=== PATIENT | male | born 1960 | race Caucasian/White ===

== ENCOUNTER → 2018-08-05 10:23 | Outpatient (CLI) | payer OTHER, SELFPAY ==
--- NOTE | 2018-08-05 | DI.CT.S_ITS ---
PROCEDURE: CT ANGIO CHEST INDICATIONS: ASCENDING THORACIC ANUERYSMN TECHNIQUE: After the administration of intravenous contrast, 2.5 mm thick sections acquired from the lung apices to the posterior lung bases. Maximum intensity projection (MIP) oblique sagittal reformats were then acquired parallel to the aortic arch. For radiation dose reduction, the following was used: automated exposure control. COMPARISON: [facility], CT, PE STUDY (CTA CHEST), 08/29/2016, 10:18. FINDINGS: Image quality: Excellent. Aorta: The ascending thoracic aorta measures 1.2 cm in oblique axial diameter. The aorta measured 4.4 cm in diameter at the same level on the study dated 08/29/16. The thoracic aortic arch and the descending thoracic aorta demonstrate normal course and caliber. No aortic wall thickening or periaortic fat stranding. Visualized portions of the mesenteric arteries including the celiac axis, SMA, and renal arteries are widely patent. Mediastinum: No hematomas. Heart size is normal. No pericardial effusion. No mediastinal or hilar adenopathy by size criteria. Trace thymic tissue is redemonstrated unchanged from the prior study. Central pulmonary arteries are normal in size. Esophagus is normal in caliber. No hiatal hernia. Lungs and pleura: No acute airspace opacities. No pleural effusions or pneumothorax. Central and peripheral airways are patent and normal in caliber. Bones and chest wall: No axillary adenopathy by size criteria. Thyroid gland is unremarkable. No suspicious bony lesions. No vertebral body compression fractures. Abdomen: Visualized upper abdominal solid organs and bowel loops appear normal. IMPRESSION: 1. 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 Continued surveillance recommended. Dictated by: Leticia Prado M.D. on 08/05/2018 at 13:29 Approved by: Leticia Prado M.D. on 08/05/2018 at 13:41
[2018-08-05 10:58] LABS: Blood Urea Nitrogen 17 mg/dL (9-20); Estimated Glomerular Filt Rate > 60.0 mL/min (>60)
== END ==
PROVIDERS: PCP Family Medicine; Visit Provider Family Medicine
DX: I71.2 Thoracic aortic aneurysm, without rupture (principal)
CPT/HCPCS: 36415; 71275; 82565; 84520; Q9967

== ENCOUNTER → 2020-03-20 15:30 | Outpatient (CLI) | payer OTHER, SELFPAY ==
--- NOTE | 2020-03-20 15:35 | DI.ECHO.S_ITS ---
[facility] +---------+ : : [address] : : : : [id number] : : : : Phone: [phone] Echocardiogram Report + + :Name: ROQUE BARNETT Study Date: 03/20/2020 Height: 75 in : :[facility] Weight: 180 lb : : Gender: Male BSA: 2.1 m2 : :: 1960 Age: 59 yrs BP: 130/81 mmHg: :Reason For Study: THORACIC AORTIC ANEURYSM WITHOUT RUPTURE : :Ordering Physician: CRUZ, : :HARVINDER Performed By: Cathy Adkins : :Referring: HARVINDER ARROYO : + + Interpretation Summary Normal both left and right ventricle size and function. The ejection fraction is 60-65%. No valvular abnormality. Mildly enlarged ascending aorta (3.6cm). No pericardial effusion. Procedure: A two-dimensional transthoracic echocardiogram with color flow and Doppler was performed. The study quality was technically adequate. There is no prior echocardiogram noted for this patient. The patient was in sinus rhythm with heart rates between 57-70 bpm during the exam. Left Ventricle: The left ventricle is normal in size and wall thickness. The ejection fraction is estimated to be 60-65%. There are no focal wall motion abnormalities. Diastolic parameters suggest probable normal left ventricular diastolic function and normal filling pressures. Right Ventricle: The right ventricle is normal in size and function. Atria: Both atria are normal in size. There is no Doppler evidence for an interatrial shunt. Mitral Valve: The mitral valve is normal in structure and function. There is trace mitral regurgitation. Aortic Valve: The aortic valve is trileaflet. The aortic valve opens well. There is no aortic valve stenosis. There is trace aortic regurgitation. Tricuspid Valve: The tricuspid valve is normal in structure and function. There is mild tricuspid regurgitation. The right ventricular systolic pressure is estimated to be at least 21 mmHg based on an estimated right atrial pressure of 3 mm Hg. Pulmonic Valve: The pulmonic valve is normal in structure and function. There is no pulmonic valvular regurgitation. Great Vessels: The aortic root is normal size. The ascending aorta is mildly enlarged. The IVC is of normal diameter and collapses greater than 50% with a sniff. This suggests a low right atrial pressure of 3 mm Hg. Pericardium/ Pleura There is no pericardial effusion. There is no pleural effusion. MMode/2D Measurements & Calculations LVIDd: 3.8 cm LVOT diam: 2.0 cm LVIDs: 2.6 cm Ao root diam: 3.3 cm FS: 31.8 % asc Aorta Diam: 3.6 cm EPSS: 0.52 cm Ao Arch Diam (Prox Trans): 2.8 cm IVSd: 0.79 cm LVPWd: 0.80 cm LV brady. diameter/BSA (cm/m^2): 1.8 LV sys. diameter/BSA (cm/m^2): 1.3 LA A2 area: 18.9 cm2 RA long axis: 5.5 cm LA A4 area: 18.2 cm2 RA area: 15.9 cm2 LA length (vol): 5.4 cm RA vol: 39.4 ml LA vol: 54.2 ml RA : 18.8 ml/m2 LA vol index: 25.8 ml/m2 IVC diam: 1.1 cm RVD1 (basal): 3.6 cm TAPSE: 2.1 cm AARON (plan): 2.5 cm2 Doppler Measurements & Calculations Ao V2 max: 105.8 cm/sec LVOT Max [place]: 112.8 cm/sec Ao V2 mean: 73.6 cm/sec LV V1 max P.1 mmHg Ao max P.5 mmHg LV V1 VTI: 24.3 cm Ao mean P.4 mmHg AARON(I,D): 3.5 cm2 Ao V2 VTI: 21.0 cm AARON(V,D): 3.3 cm2 sev ratio: 1.2 AARON indexed to BSA (cm^2/m^2): 1.7 MV E max adair: 91.6 cm/sec TR max adair: 209.3 cm/sec MV A max adair: 79.4 cm/sec TR max P.6 mmHg MV E/A: 1.2 PA V2 max: 50.8 cm/sec Med Peak E' [place]air: 10.8 cm/sec PA V2 mean: 33.2 cm/sec E/E' med: 8.4 PA mean P.53 mmHg Lat Peak E' Adair: 11.8 cm/sec PA pr(Accel): 17.3 mmHg E/E' lat: 7.8 E/e' average: 8.1 MV dec time: 0.15 sec SV(LVOT): 74.6 ml Electronically signed by: Joseph Tirado on Reading Physician:03/20/2020 05:36 PM
== END ==
PROVIDERS: PCP Family Medicine; Referring Provider Nurse Practitioner; Visit Provider Nurse Practitioner
DX: I07.1 Rheumatic tricuspid insufficiency (principal); I77.89 Other specified disorders of arteries and arterioles; I71.2 Thoracic aortic aneurysm, without rupture
CPT/HCPCS: 93306

== ENCOUNTER 2021-02-26 15:19 | Emergency (ER) | payer OTHER, SELFPAY ==
[2021-02-26 15:21] VITALS: BP 130/70; PULSE 65; RESP 16; TEMP 36.4; O2SAT 100
[2021-02-26] MEDS: TET,DIPH,PERTUSS(ACELL),VAC/PF 0.5 ML SYRINGE IM (19:43)
--- NOTE | 2021-02-26 19:46 | DI.RAD.S_ITS ---
PROCEDURE: XR FOOT RT 2V INDICATIONS: puncture wound TECHNIQUE: 2 views of the foot were acquired. COMPARISON: None. FINDINGS: Bones: No fractures or dislocations. No suspicious bony lesions. Soft tissues: No tibiotalar joint effusion. Achilles tendon appears normal. No radiopaque soft tissue foreign bodies. IMPRESSION: Left foot without acute fracture or dislocation. No radiopaque soft tissue foreign bodies. Dictated by: Nicholas Devlin M.D. on 02/26/2021 at 20:49 Approved by: Nicholas Devlin M.D. on 02/26/2021 at 20:55
--- NOTE | 2021-02-26 20:32 | ED_ITS ---
HPI - Wound/Laceration <CHARO Stanley - Last Filed: 02/26/21 21:15> General Chief Complaint: Wound/Laceration Stated Complaint: left foot injury/wound 30 min Time Seen by Provider: 02/26/21 19:45 Source: patient Mode of arrival: Ambulatory History of Present Illness HPI narrative: Patient is a 60-year-old male who was pressure washing the inside of his boat when he slipped and punctured the volar aspect of his left foot approximately 6 hours ago. He is not on any anticoagulants. He was barefoot with clean feet and recently cleaned the surface that he injured his foot on. He is able to bear weight, bleeding was controlled, he does not complain of pain however he was concerned that he might need sutures. Patient also is requesting a tetanus vaccination. He cleaned his wound out immediately and allowed it to bleed and it stopped bleeding without intervention. Related Data Previous Rx's Medication Instructions Recorded cephalexin 500 mg capsule 500 mg PO QID #30 cap 02/26/21 Allergies Allergy/AdvReac Type Severity Reaction Status Date / Time No Known Allergies Allergy Uncoded 10/01/17 12:42 Review of Systems <CHARO Stanley - Last Filed: 02/26/21 21:15> Review of Systems Narrative: General: denies fever, chills Head/Neck: denies headache, neck pain Eyes: denies visual changes, eye pain Cardio: denies chest pain, palpitations Respiratory: denies shortness of breath, cough GI: denies abdominal pain, nausea, vomiting, or diarrhea : denies dysuria, hematuria MSK: denies joint pain, muscle weakness, small lac on sole of left foot Skin: denies rash, itching Neuro: denies numbness, tingling Exam <CHARO Stanley - Last Filed: 02/26/21 21:15> Narrative Exam Narrative: Independently reviewed vitals signs and nursing notes. General: Awake, alert, nontoxic, no cardiorespiratory distress Head/Neck: Atraumatic, neck full range of motion Eyes: EOMI, conjunctiva normal Nose: nares patent, no rhinorrhea Mouth/Throat: moist mucus membranes, posterior pharynx normal, no oral lesions Cardio: Regular rate and rhythm, no peripheral edema Respiratory: respirations unlabored without wheezing, stridor, or rales. No retractions. GI: Abdomen soft, nontender MSK: Moves all extremities, neurovascularly intact Skin: Normal capillary refill, no rash, left foot puncture wound is approximately 1 cm in length. It was copiously irrigated with normal saline, bleeding is controlled, wound edges are approximated. Neuro: Normal speech and cognition, normal gait Initial Vital Signs Initial Vital Signs: Vital Signs Temperature 97.6 F 02/26/21 15:21 Pulse Rate 65 02/26/21 15:21 Respiratory Rate 16 02/26/21 15:21 Blood Pressure 130/70 02/26/21 15:21 Pulse Oximetry 100 02/26/21 15:21 <Tawanna Casas DO - Last Filed: 03/03/21 03:35> Initial Vital Signs Initial Vital Signs: Vital Signs Temperature 97.6 F 02/26/21 15:21 Pulse Rate 65 02/26/21 15:21 Respiratory Rate 16 02/26/21 15:21 Blood Pressure 130/70 02/26/21 15:21 Pulse Oximetry 100 02/26/21 15:21 Procedures <CHARO Stanley - Last Filed: 02/26/21 21:15> Laceration Repair Laceration 1: Site: other (Left foot) Size (cm): 1 Description: linear and clean Depth: simple, single layer Pre-repair: irrigated extensively Skin layer closed with: steri-strips Size (cm): other Number of sutures: 0 Technique: other Course <CHARO Stanley - Last Filed: 02/26/21 21:15> Orders Ordered: Discontinued Medications Diphtheria/Tetanus/Acell Pertussis (Tet,Diph,Pertuss(Acell),Vac/Pf 0.5 Ml Syringe) 0.5 ml IM .ONCE ONE Stop: 02/26/21 19:23 Last Admin: 02/26/21 19:43 Dose: 0.5 ml Documented by: WERNER Lidocaine/Epinephrine (Lidocaine 1% W/Epi) 1 ml SUBCUT NOW ONE Stop: 02/26/21 19:48 Last Admin: 02/26/21 20:10 Dose: Not Given Documented by: VINCENT PROCEDURE:? XR FOOT RT 2V ? INDICATIONS:? puncture wound ? TECHNIQUE:? 2 views of the foot were acquired.? ? COMPARISON:? None. ? FINDINGS:? ? Bones:? No fractures or dislocations.? No suspicious bony lesions.? ? Soft tissues:? No tibiotalar joint effusion.? Achilles tendon appears normal.? No radiopaque soft tissue foreign bodies. ? ? IMPRESSION:? Left foot without acute fracture or dislocation. No radiopaque soft tissue foreign bodies. ? ? ? Dictated by: Nicholas Devlin M.D. on 02/26/2021 at 20:49 ? ? Approved by: Nicholas Devlin M.D. on 02/26/2021 at 20:55 ? Vital Signs Vital signs: Vital Signs - 8 hr 02/26/21 15:21 Temperature 97.6 F Pulse Rate 65 Respiratory Rate 16 Blood Pressure 130/70 Pulse Oximetry 100 <Tawanna Casas DO - Last Filed: 03/03/21 03:35> Orders Ordered: Discontinued Medications Diphtheria/Tetanus/Acell Pertussis (Tet,Diph,Pertuss(Acell),Vac/Pf 0.5 Ml Syringe) 0.5 ml IM .ONCE ONE Stop: 02/26/21 19:23 Last Admin: 02/26/21 19:43 Dose: 0.5 ml Documented by: WERNER Lidocaine/Epinephrine (Lidocaine 1% W/Epi) 1 ml SUBCUT NOW ONE Stop: 02/26/21 19:48 Last Admin: 02/26/21 20:10 Dose: Not Given Documented by: VINCENT Vital Signs Vital signs: Vital Signs - 8 hr 02/26/21 15:21 Temperature 97.6 F Pulse Rate 65 Respiratory Rate 16 Blood Pressure 130/70 Pulse Oximetry 100 MDM - Wound/Laceration <Kerri Gonzalez [facility] - Last Filed: 02/26/21 21:15> Imaging Data Extremity x-ray #1: Radiologist's Impression: PROCEDURE:? XR FOOT RT 2V ? INDICATIONS:? puncture wound ? TECHNIQUE:? 2 views of the foot were acquired.? ? COMPARISON:? None. ? FINDINGS:? ? Bones:? No fractures or dislocations.? No suspicious bony lesions.? ? Soft tissues:? No tibiotalar joint effusion.? Achilles tendon appears normal.? No radiopaque soft tissue foreign bodies. ? ? IMPRESSION:? Left foot without acute fracture or dislocation. No radiopaque soft tissue foreign bodies. ? ? ? Dictated by: Nicholas Devlin M.D. on 02/26/2021 at 20:49 ? ? Approved by: Nicholas Devlin M.D. on 02/26/2021 at 20:55 ? MDM Narrative Medical decision making narrative: Patient is a 60-year-old male who was pressure washing the inside of his boat when he slipped and punctured the volar aspect of his left foot approximately 6 hours ago. Patient is on anticoagulants, and is not immunocompromised. The patient was barefoot and injured his foot on a clean surface with immediate wound care after injury. Wound edges approximated after copious irrigation with 1 Steri-Strip. No concerns for pseudomonal contamination in his wound. If not improving in 1-2 days, or if any signs of infection patient understands he will see his primary care physician for this, this week. Vital signs were within normal limits. Left foot x-ray without acute fracture or dislocation no radiopaque soft tissue foreign bodies per radiology read. Patient was prescribed a 7 day course of Keflex with strict ER precautions. Patient is appropriate and amenable to discharge home. Vital signs are stable on repeat examination is unremarkable. Patient has been informed of results. Patient has been given strict return to ER precautions for any new or worsening symptoms. Patient understands to follow up closely with outpatient providers as instructed. Patient understands plan and agrees to discharge home. All questions and concerns answered at this time. Discharge Plan Departure Patient Disposition: Home Clinical Impression: Puncture wound of foot Qualifiers: Encounter type: initial encounter Laterality: left Qualified Code(s): S91.332A - Puncture wound without foreign body, left foot, initial encounter Instructions: DI for Puncture Wound Activity Restrictions/Additional Instructions: *You have been diagnosed with a puncture wound left foot. There is no fracture or debris visible on your x-ray. 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 Apply bacitracin ointment if desired. *What to do: *Please continue to take your regular medications as directed. [x ] New medication prescriptions sent to your pharmacy: [ cephalexin] [facility] in [place] [ ] New medication written as a paper prescription [ ] No new medications given *Please follow up with your primary care provider in 2-3 days if not improving, call for an appointment. Let them know you were seen in the Emergency Department and that we ask that you be seen in follow up. We will electronically transmit a record of today's note if your PCP is in our system *If you do not have a primary care provider please contact the [facility] Resource line at [phone]. They will ask some questions about your medical history and help get you set up with a doctor in the community. *Return to Emergency Department if you should have any new, worsening or concerning symptoms, such as [fever greater than 101F, chills, worsening pain, persistent vomiting or other bothersome symptoms] Prescriptions: New cephalexin 500 mg capsule 500 mg PO QID Qty: 30 RF: 0 Referrals: Levi Clifton MD [Primary Care Provider] - <Tawanna Casas DO - Last Filed: 03/03/21 03:35> Cosign ED Attending Cosjaimeeature Attestation: I was immediately available in the department for consultation. Documentation has been reviewed. I agree with assessment and plan.
== END 2021-02-26 20:41 | disposition home or self-care (01) ==
PROVIDERS: Emergency Provider Nurse Practitioner Critical Care Medicine; PCP Family Medicine
DX: S91.332A Puncture wound without foreign body, left foot, initial encounter (principal); W01.10XA Fall on same level from slipping, tripping and stumbling with subsequent striking against unspecified object, initial encounter; Z23 Encounter for immunization
CPT/HCPCS: 73620; 90471; 99283; 99284; 90715

== ENCOUNTER → 2022-11-22 11:20 | Outpatient (CLI) | payer OTHER, SELFPAY ==
--- NOTE | 2022-11-22 | DI.CT.S_ITS ---
PROCEDURE: CT ANGIO CHEST ABDOMEN PELVIS INDICATIONS: Thoracic aortic aneurysm, without rupture TECHNIQUE: Precontrast 5 mm thick sections acquired from the lung apices to the iliac crests. After the administration of intravenous contrast, 2.5 mm thick sections again acquired from the lung apices to the iliac crests. Maximum intensity projection (MIP) oblique sagittal and coronal reformats were then acquired. For radiation dose reduction, the following was used: automated exposure control. COMPARISON: [facility], CT, CT ANGIO CHEST, 08/05/2018, 12:27. FINDINGS: Image quality: Excellent. AORTA: Intramural hematoma: Absent Maximum hematoma thickness: Not applicable Focal contrast enhancement: Intramural blood pool (< 2 mm neck or imperceptible communication with aortic lumen): Absent . Ulcer-like projection (broad communication with aortic lumen > 3 mm): Absent . Dissection: Absent [place] classification: Not applicable Maximum aortic diameter: 4.3 cm in the area of prior CT concern ascending aorta near the aortic root. In August of 2016 this same area had measured 4.4 cm and in July of 2018 it had measured 4.2 cm. No new area of ectasias has developed. Periaortic hematoma: Absent . CHEST: Lungs and pleura: No acute airspace opacities. No pleural effusions or pneumothorax. Central and peripheral airways are patent and normal in caliber. Mediastinum: Heart size is normal. No pericardial effusion. No mediastinal or hilar adenopathy by size criteria. Central pulmonary arteries are normal in size. Esophagus is normal in caliber. No hiatal hernias. Bones and chest wall: No axillary adenopathy by size criteria. Thyroid gland normal on the left but a lateral right-sided enhancing nodule involves the right hepatic lobe and measures up to 1.3 cm. No suspicious bony lesions. No vertebral body compression fractures. ABDOMEN: Vasculature: Celiac trunk and mesenteric arteries are patent. Renal arteries are also patent. Solid organs: Liver is normal in size and enhancement. Gallbladder normal . Biliary system is non dilated. Pancreas enhances normally. Spleen is normal in size and enhancement. No adrenal nodules. Both kidneys are normal in size and enhancement, without hydronephrosis. Peritoneum and bowel: No free fluid or air. Bowel loops are normal in caliber and wall thickness. Nodes and vessels: No retroperitoneal or mesenteric adenopathy by size criteria. Inferior vena cava is normal in morphology. Miscellaneous: No ventral hernias. PELVIS: Genitourinary: Bladder wall thickness is normal. Miscellaneous: No inguinal hernias or adenopathy. No ventral hernias. Normal appendix found right lower quadrant. Bones: No suspicious bony lesions. No vertebral body compression fractures. IMPRESSION: The ascending aortic ectasia is stable over time, 4.3 cm in maximal dimension. No new area of ectasia or aneurysmal dilatation has developed elsewhere. Incidental note made of a small enhancing right thyroid lobe nodule. This structure could be more accurately assessed by ultrasound, and was not identified on prior CT scanning from 2019. Dictated by: Paulie Mota M.D. on 11/22/2022 at 13:57 Approved by: Paulie Mota M.D. on 11/22/2022 at 14:05
== END ==
PROVIDERS: PCP Family Medicine; Referring Provider Family Medicine; Visit Provider Family Medicine
DX: I71.20 Thoracic aortic aneurysm, without rupture, unspecified (principal); E04.1 Nontoxic single thyroid nodule
CPT/HCPCS: 71275; 74174; Q9967

== ENCOUNTER → 2022-12-13 15:50 | Outpatient (CLI) | payer OTHER, SELFPAY ==
--- NOTE | 2022-12-13 15:50 | DI.US.S_ITS ---
PROCEDURE: US THYROID INDICATIONS: Nontoxic single thyroid nodule TECHNIQUE: Real-time scanning was performed of the thyroid gland, with image documentation. COMPARISON: None. FINDINGS: Right: Thyroid lobe measures 4.0 x 1.6 x 1.5 cm, and is heterogeneous in echotexture. Mild hypervascularity is seen in right thyroid lobe. Left: Thyroid lobe measures 3.2 x 1.0 x 1.1 cm, and is heterogeneous in echotexture. Isthmus: 2.9 mm thick. Nodule number: 1 Location: Mid pole right thyroid lobe Size: 0.8 x 0.7 x 0.4 cm Composition: Predominantly cystic Echogenicity: Isoechoic Shape: Wider than tall Margins: Smooth Echogenic foci: Non Total points: 1 ACR TI-RADS category: Not suspicious Nodule number: 2 Location: Lower pole right thyroid lobe Size: 1.1 x 0.8 x 0.7 cm Composition: Solid Echogenicity: Isoechoic Shape: Wider than tall Margins: Smooth Echogenic foci: Non Total points: 3 ACR TI-RADS category: Mildly suspicious IMPRESSION: Slightly atrophic appearing thyroid gland with heterogeneous thyroid parenchymal echotexture. 2 small right thyroid lobe nodules as described above. No ultrasound follow-up is indicated based on following recommendations. ACR TI-RADS definitions and recommendations: TI-RADS 1 (benign): 0 points. FNA not needed. TI-RADS 2 (not suspicious): 2 points. FNA not needed. TI-RADS 3 (mildly suspicious): 3 points. * FNA if 2.5 cm or larger, follow up if 1.5 cm or larger (at 1, 3, and 5 years). TI-RADS 4 (moderately suspicious): 4-6 points. * FNA if 1.5 cm or larger, follow up if 1 cm or larger (at 1, 2, 3, and 5 years). TI-RADS 5 (highly suspicious): 7 points or more. * FNA if 1 cm or larger, follow up if 0.5 cm or larger (every year for 5 years). Dictated by: Gregor Chauhan M.D. on 12/13/2022 at 16:54 Approved by: Gregor Chauhan M.D. on 12/13/2022 at 16:57
== END ==
PROVIDERS: PCP Family Medicine; Referring Provider Family Medicine; Visit Provider Family Medicine
DX: E04.2 Nontoxic multinodular goiter (principal)
CPT/HCPCS: 76536

== ENCOUNTER → 2023-07-29 15:50 | Outpatient (CLI) | payer OTHER, MEDICARE, SELFPAY ==
--- NOTE | 2023-07-29 | DI.RAD.S_ITS ---
PROCEDURE: XR CHEST 2V INDICATIONS: COUGH TECHNIQUE: 2 views of the chest were acquired. COMPARISON: [facility], , CHEST 1 VIEW, 08/29/2016, 8:27. FINDINGS: Surgical changes and devices: None. Lungs and pleura: Lungs are clear. No pleural effusions or pneumothorax. Mediastinum: Mediastinal contours are normal. Heart size is normal. Bones and chest wall: No suspicious bony abnormalities. Soft tissues appear unremarkable. IMPRESSION: No acute cardiopulmonary abnormality is seen. Dictated by: Sanjay Desir M.D. on 07/29/2023 at 19:27 Approved by: Sanjay Desir M.D. on 07/29/2023 at 19:27
== END ==
PROVIDERS: PCP Family Medicine; Referring Provider Registered Nurse; Visit Provider Registered Nurse
DX: J06.9 Acute upper respiratory infection, unspecified (principal); R05.2 Subacute cough
CPT/HCPCS: 71046

== ENCOUNTER → 2023-07-29 16:32 | Outpatient (CLI) | payer MEDICARE, OTHER, SELFPAY ==
--- NOTE | 2023-07-29 | DI.US.S_ITS ---
PROCEDURE: US THYROID INDICATIONS: Nontoxic single thyroid nodule TECHNIQUE: Real-time scanning was performed of the thyroid gland, with image documentation. COMPARISON: [facility], [place], US THYROID, 12/13/2022, 15:57. FINDINGS: Right: Thyroid lobe measures 3.6 x 1.7 x 1.4 cm, and is heterogenous in echotexture. Left: Thyroid lobe measures 3.3 x 1.0 x 1.0 cm, and is homogenous in echotexture. Isthmus: 0.5 cm thick. Nodule number: 1 Location: Right mid Size: 0.8 x 0.4 x 0.7 cm, previously 0.8 x 0.7 x 0.4 cm. Composition: Predominantly cystic Echogenicity: Isoechoic Shape: wider than tall. Margins: Smooth Echogenic foci: None Total points: 1 ACR TI-RADS category: 1 Nodule number: 2 Location: Right inferior Size: 1.0 x 0.8 x 0.9 cm, previously 1.1 x 0.8 x 0.7 cm. Composition: Solid Echogenicity: Isoechoic Shape: wider than tall. Margins: Smooth Echogenic foci: None Total points: 3 ACR TI-RADS category: 3 IMPRESSION: Stable right-sided small thyroid nodules. Advise continued follow-up as below ACR TI-RADS definitions and recommendations: TI-RADS 1 (benign): 0 points. FNA not needed. TI-RADS 2 (not suspicious): 2 points. FNA not needed. TI-RADS 3 (mildly suspicious): 3 points. * FNA if 2.5 cm or larger, follow up if 1.5 cm or larger (at 1, 3, and 5 years). TI-RADS 4 (moderately suspicious): 4-6 points. * FNA if 1.5 cm or larger, follow up if 1 cm or larger (at 1, 2, 3, and 5 years). TI-RADS 5 (highly suspicious): 7 points or more. * FNA if 1 cm or larger, follow up if 0.5 cm or larger (every year for 5 years). Normal examination. Dictated by: Lex Kimball M.D. on 07/29/2023 at 17:09 Approved by: Lex Kimball M.D. on 07/29/2023 at 17:13
== END ==
PROVIDERS: PCP Family Medicine; Referring Provider Family Medicine; Visit Provider Family Medicine
DX: E04.2 Nontoxic multinodular goiter (principal); J06.9 Acute upper respiratory infection, unspecified; R05.2 Subacute cough
CPT/HCPCS: 71046; 76536

== ENCOUNTER → 2024-08-27 15:08 | Outpatient (CLI) | payer MEDICARE, OTHER, SELFPAY ==
--- NOTE | 2024-08-27 15:09 | DI.US.S_ITS ---
PROCEDURE: US THYROID INDICATIONS: NONTOXIC SINGLE THYROID NODULE TECHNIQUE: Real-time scanning was performed of the thyroid gland, with image documentation. COMPARISON: [facility], US, US THYROID, 07/29/2023, 16:42. FINDINGS: Thyroid: Right lobe measures 3.2 x 1.2 x 1.2 cm. Left lobe measures 2.9 x 1.0 x 1.1 cm. Isthmus is 0.2 cm thick. Echotexture is homogeneous. Nodule number: 1 Location: Right inferior Size: 1.2 x 1.0 x 0.7 cm compared to 1.0 x 0.9 x 0.8 cm. Composition: Solid Echogenicity: Hypoechoic Shape: wider than tall. Margins: Smooth Echogenic foci: None Total points: 4 ACR TI-RADS category: 4 Additional areas of nodularity were identified not meeting criteria for follow-up. IMPRESSION: Nodule 1 is considered category 4. Secondary to size, imaging follow-up is recommended ACR TI-RADS definitions and recommendations: TI-RADS 1 (benign): 0 points. FNA not needed. TI-RADS 2 (not suspicious): 2 points. FNA not needed. TI-RADS 3: 3 points. * FNA if 2.5 cm or larger, follow up if 1.5 cm or larger (at 1, 3, and 5 years). TI-RADS 4: 4-6 points. * FNA if 1.5 cm or larger, follow up if 1 cm or larger (at 1, 2, 3, and 5 years). TI-RADS 5: 7 points or more. * FNA if 1 cm or larger, follow up if 0.5 cm or larger (every year for 5 years). Dictated by: Roberta Bajwa M.D. on 08/29/2024 at 18:14 Approved by: Roberta Bajwa M.D. on 08/29/2024 at 21:11
== END ==
LOC: US 15:09
PROVIDERS: PCP Family Medicine; Referring Provider Family Medicine; Visit Provider Family Medicine
DX: E04.1 Nontoxic single thyroid nodule (principal)
CPT/HCPCS: 76536

== ENCOUNTER → 2025-02-25 11:37 | Outpatient (CLI) | payer MEDICARE, OTHER, SELFPAY ==
--- NOTE | 2025-02-25 11:41 | DI.RAD.S_ITS ---
PROCEDURE: XR LUMBAR SPINE MIN 4V INDICATIONS: Radicular leg pain TECHNIQUE: 5 views of the lumbar spine acquired, including flexion and extension views. COMPARISON: None. FINDINGS: Bones: 5 nonrib-bearing vertebrae are present. Mild levo curvature centered at the L3 level. 5 mm retrolisthesis L2-L3 and 2 mm retrolisthesis L3-L4 and L4-L5. Mild multilevel disc height loss with endplate sclerosis and spurring. Mild facet joint arthropathy L4-L5 and L5-S1. No vertebral body compression fractures. No suspicious bony lesions. Soft tissues: Overlying bowel gas pattern is normal. No suspicious soft tissue calcifications. Vascular calcifications indicate atherosclerosis. IMPRESSION: Mild multilevel lumbar spine spondylosis. Dictated by: Forrest Riley RR Interpreted: Dread Pierce MD on 02/25/2025 at 13:20 Transcribed by: MARIA ESTHER on 02/25/2025 at 13:22 Approved by: Dread Pierce M.D. on 03/03/2025 at 7:58
--- NOTE | 2025-02-25 11:41 | DI.RAD.S_ITS ---
PROCEDURE: XR HIP W PEL IF DONE LT 2V INDICATIONS: Left hip pain TECHNIQUE: AP pelvis with lateral view(s) of the left hip(s). COMPARISON: None. FINDINGS: Bones: No fractures or dislocations. Pelvic ring appears intact. No suspicious bony lesions. Mild symmetric axial hip joint space narrowing and periarticular osteophyte formation. Osseous prominence along the left femoral head/neck junction. Soft tissues: The visualized bowel gas pattern is normal. No suspicious soft tissue calcifications. IMPRESSION: Mild symmetric hip joint degeneration. Osseous prominence along the head/neck junction on the left which can be associated with CAM type acetabular impingement in the appropriate clinical setting. If indicated, MRI could be performed for further assessment. Dictated by: Forrest Riley [facility] Interpreted: Dread Pierce MD on 02/25/2025 at 12:23 Transcribed by: MARIA ESTHER on 02/25/2025 at 12:24 Approved by: Dread Pierce M.D. on 03/03/2025 at 7:58
== END ==
PROVIDERS: PCP Family Medicine; Referring Provider Family Medicine; Visit Provider Family Medicine
DX: M47.816 Spondylosis without myelopathy or radiculopathy, lumbar region (principal); M47.817 Spondylosis without myelopathy or radiculopathy, lumbosacral region; M16.12 Unilateral primary osteoarthritis, left hip; M54.10 Radiculopathy, site unspecified; M25.552 Pain in left hip
CPT/HCPCS: 72110; 73502

== ENCOUNTER → 2025-03-09 19:38 | Outpatient (CLI) | payer MEDICARE, OTHER, SELFPAY ==
--- NOTE | 2025-03-09 19:41 | DI.MRI.S_ITS ---
PROCEDURE: MR LUMBAR SPINE WO CON INDICATIONS: LEFT HIP PAIN TECHNIQUE: Noncontrast sagittal T1 spin echo and T2 fast echo, sagittal STIR, and T2 fast spin echo through the lumbar spine. In cases with scoliosis, additional coronal T2 fast spin echo may be performed. COMPARISON: None. FINDINGS: Image quality: Excellent. Alignment and Curvature: There is normal bony alignment. Bone Marrow: Marrow is of normal overall signal. No acute vertebral body compression fractures. Spinal Cord: Conus medullaris terminates at the L1 level. Visualized cord demonstrates normal signal and size. Paraspinous Soft Tissues: No paravertebral masses. T12-L1: Normal appearance. L1-L2: Mild disc bulge and facet hypertrophy with mild spinal canal narrowing and no foraminal narrowing. L2-L3: Disc bulge and facet hypertrophy with mild right foraminal narrowing and no left foraminal narrowing. Mild central canal narrowing. L3-L4: Disc bulge and facet hypertrophy with moderate bilateral foraminal narrowing and moderate canal narrowing. L4-L5: Disc bulge and facet hypertrophy with mild canal narrowing. Small left foraminal disc protrusion suspected with compression of exiting nerve root and severe foraminal narrowing. Moderate right foraminal narrowing. L5-S1: Mild disc bulge and facet hypertrophy with no canal narrowing. Moderate bilateral foraminal narrowing. IMPRESSION: Multilevel degenerative changes , notably with suspected left foraminal disc herniation with compression of exiting L4 nerve root. Dictated by: Larry Jameson M.D. on 03/10/2025 at 8:56 Approved by: Larry Jameson M.D. on 03/10/2025 at 9:06
== END ==
LOC: MRI 19:39
PROVIDERS: PCP Family Medicine; Referring Provider Family Medicine; Visit Provider Family Medicine
DX: M47.816 Spondylosis without myelopathy or radiculopathy, lumbar region (principal); M47.817 Spondylosis without myelopathy or radiculopathy, lumbosacral region; M54.10 Radiculopathy, site unspecified; M25.552 Pain in left hip
CPT/HCPCS: 72148